=== PATIENT | male | born 1970 | race Hispanic/Latino ===

== ENCOUNTER 2019-05-09 00:07 | Emergency (ER) | payer SELFPAY ==
[2019-05-09 00:43] LABS: #Lymphocytes 2.9 thou/uL (1.20-3.40); #Monocytes 0.2 thou/uL (0.11-0.59); #Neutrophils 5.1 thou/uL (1.40-6.50); %Basophils 0.1 % (0.0-1.0); %Eosinophils 0.6 % (0.0-10.0); %Lymphocytes 34.8 % (21.0-51.0); %Monocytes 2.1 % (0.0-10.0); %Neutrophils 62.4 % (42.0-75.0); Hemoglobin 16.5 g/dL (14.0-18.0); Mean Corpuscular Hemoglobin 29.3 pg (27.0-31.0); Mean Corpuscular Volume 86.3 fL (78.0-98.0); Mean Platelet Volume 9.6 fL (7.4-10.4); Platelet Count 172 thou/uL (130-400); RBC Distribution Width 12.3 % (11.5-14.5); Red Blood Cell (RBC) Count 5.63 mill/uL (4.70-6.10); White Blood Cell (WBC) Count 8.2 thou/uL (4.8-10.8)
[2019-05-09 01:06] LABS: ALT (SGPT) 27 U/L (8-55); AST (SGOT) 17 U/L (5-34); Albumin 4.8 g/dL (3.5-5.0); Alkaline Phosphatase 59 U/L (40-110); Anion Gap 13 mmol/L (10-20); BUN (Urea Nitrogen) 15 mg/dL (8.9-20.6); Bilirubin, Total 0.6 mg/dL (0.2-1.2); Calc. Creatinine Clearance 0 mL/min (70-130); Calcium 9.5 mg/dL (7.8-10.44); Carbon Dioxide 29 mmol/L (22-29); Chloride 100 mmol/L (98-107); Estimated GFR-MDRD Greater than 90; Glucose 125 mg/dL (70-105); Lipase 15 U/L (8-78); Protein, Total 7.8 g/dL (6.0-8.3); Sodium 139 mmol/L (136-145)
[2019-05-09 01:09] LABS: Potassium 2.8 mmol/L (3.5-5.1)
[2019-05-09] MEDS ORDERED: Morphine 4 MG/ML VIAL ONE (01:12)
[2019-05-09] MEDS ORDERED: Potassium Chloride 20 MEQ TAB ONE (01:12)
[2019-05-09] MEDS ORDERED: Ondansetron PF 4 MG/2 ML Vial ONE (01:12)
[2019-05-09 01:23] LABS: Bilirubin Negative (Negative); Blood, Urine Negative (Negative); Clarity Turbid (Clear); Glucose, Urine (Dipstick) Normal (Negative); Leukocyte Negative Leu/uL (Negative); Nitrite Negative (Negative); Protein, Urine (Dipstick) 20 mg/dL (Neg-Trace)
--- NOTE | 2019-05-09 11:53 | CT ---
PRELIMINARY REPORT/[facility]/EMERGENCY AFTER HOURS PROCEDURE: PROCEDURE INFORMATION: Exam: CT Abdomen And Pelvis With Contrast Exam date and time: 05/09/2019 1:48 AM Clinical history: 48 years old, male; Abdominal pain; Patient HX: PT presents for periumbilical abd p ain x 3 hrs with associated n/v. Denies fever, diarrhea, or urinary symptoms. 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 No alleviating symptoms. Aggravated by movement and certain positions. PT does not drink al cohol. Denies surgical or medical history. TECHNIQUE: Imaging protocol: Computed tomography of the abdomen and pelvis with intravenous contrast. COMPARISON: No relevant prior studies available. FINDINGS: Lungs: There is subpleural atelectasis of the dependent portions of the lungs. Liver: There are no focal liver lesions identified. Gallbladder and bile ducts: The gallbladder is normal. There is no evidence of biliary ductal dilatio n. Pancreas: The pancreas appears normal. No ductal dilatation. Spleen: The spleen is normal. Adrenals: The adrenal glands are normal. Kidneys and ureters: The kidneys appear normal. No hydronephrosis. Stomach and bowel: Several minimally dilated with other collapsed loops of small bowel are noted thro ughout the abdomen (predominantly on the left) compatible with enteritis or early small bowel obstruc tion. Maximal small bowel distention measures up to 3 cm. mild stomach distention also noted. Appendix: No evidence of appendicitis. Intraperitoneal space: Unremarkable. No free air. No significant fluid collection. Vasculature: Unremarkable. No abdominal aortic aneurysm. Lymph nodes: Unremarkable. No enlarged lymph nodes. Bladder: Unremarkable as visualized. Reproductive: The prostate gland and seminal vesicles are normal. Bones/joints: Unremarkable. No acute fracture. Soft tissues: Unremarkable. IMPRESSION: Nonspecific small bowel dilatation with areas of collapse predominantly on the left. Correlate for ea rly small bowel obstruction versus enteritis. Thank you for allowing us to participate in the care of your patient. Dictated and Authenticated by: Willy Saxena MD 05/09/2019 3:09 AM Central Time ([place] & [place]) FINAL REPORT CT ABDOMEN AND PELVIS WITH IV CONTRAST: IMPRESSION: I agree with the preliminary report given by Jake. POS: [facility]
[2019-05-09] MEDS ORDERED: ISOVUE-370 76%-LOCM 1 ML ONE (12:11)
== END 2019-05-09 03:56 | disposition home or self-care (01) ==
LOC: ERS 00:07
DX: R10.30 Lower abdominal pain, unspecified (principal); R10.33 Periumbilical pain; R10.816 Epigastric abdominal tenderness
CPT/HCPCS: 74177; 80053; 81003; 83690; 85025; 96361; 96374; 96375; J2270; J2405; Q9966

== ENCOUNTER 2023-06-23 09:28 | Outpatient (CLI) | payer OTHER | END 2023-06-23 09:29 | disposition home or self-care (01) | LOC: ULT 09:28 | PROVIDERS: ATTEND Internal Medicine Gastroenterology | DX: R10.9 Unspecified abdominal pain (principal) | CPT/HCPCS: 76700 ==

== ENCOUNTER 2023-12-05 14:36 | Outpatient (CLI) | payer OTHER | END 2023-12-05 14:37 | disposition home or self-care (01) | LOC: ULT 14:36 | PROVIDERS: ATTEND Urology | DX: N40.1 Benign prostatic hyperplasia with lower urinary tract symptoms (principal); M54.50 Low back pain, unspecified; N32.89 Other specified disorders of bladder | CPT/HCPCS: 76770 ==